=== PATIENT | male | born 1970 | race Caucasian/White ===

== ENCOUNTER 2016-03-08 11:44 | Emergency (ER) | payer SELFPAY ==
[2016-03-08 11:44] VITALS: BMI 25.2
[2016-03-08 12:11] VITALS: BP 127/82; PULSE 90; TEMP 97.5
--- NOTE | 2016-03-08 12:27 | EDPRACDOC ---
- General Information Chief Complaint: Knee Pain Stated Complaint: KNEE PAIN Time Seen by Provider: 03/08/16 12:22 Information Source: Patient Mode of Arrival: Car Home Medications: Home Medications Ibuprofen Tablet [Advil] 800 mg PO Q8H PRN 07/26/12 Esomeprazole Magnesium [Nexium 24Hr] 22.3 mg PO DAILY 01/29/15 Lamotrigine 200 mg PO BID 01/29/15 Sertraline HCl 100 mg PO DAILY #10 tablet 01/30/15 Trazodone HCl 100 mg PO QHS #10 tab 01/30/15 Meloxicam [Mobic] 7.5 mg PO DAILY #30 tab 03/29/15 Ketoprofen 50 mg PO BID PRN #20 capsule 03/08/16 Allergies/Adverse Reactions: Allergies Allergy/AdvReac Type Severity Reaction Status Date / Time No Known Allergies Allergy Verified 03/29/15 18:23 - History of Present Illness Onset: yesterday HPI: PT STATES HE FELL AND TWISTED HIS LEFT KNEE YESTERDAY, STATES KNEE IS MILDLY PAINFUL AND SWOLLEN, PT STATES HE HAS A "PLATE" IN HIS KNEE FROM PREVIOUS FRACTURE. PT IS ABLE TO AMBULATE WITHOUT DIFFICULTY Knee Problem Location: Left Mechanism: Reports: Twisting Circumstances: Reports: Fall Relevant History: Reports: Knee Operation Able to Bear Weight: Fully Pain Severity: Reports: Mild Associated Signs & Symptoms: Reports: Swelling. 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 Denies: Substance Use Disorder Systemic History: Denies: Cancer Surgical History: Reports: Other (Left knee, Left wrist, right foot) - Family Medical History Reports: Hypertension (MOTHER). Denies: Diabetes, Cancer, Stroke, Cardiac Disorders - Social Medical History Smoking Status: Heavy tobacco smoker (5 or more cigarettes/day or daily pipe/ cigar) Social History: Denies: Substance Use Disorder EDM Review of Systems - Review of Systems Neurological: negative: Dizziness, Numbness, Weakness Musculoskeletal: Knee Integumentary: No Symptoms Reported - Physical Exam Constitutional: Alert (Awake), No apparent distress Oriented to: Time, Person, Place Last recorded Vital Signs: Last Vital Signs Temp 97.5 F 03/08/16 12:10 Pulse 90 03/08/16 12:10 Resp 18 03/08/16 12:10 BP 127/82 03/08/16 12:10 Pulse Ox 99 03/08/16 12:10 Oxygen Pulse Oxygen Saturation 99 O2 Device Room Air Oxygen Flow Rate Fraction of Inspired Oxygen ( FIO2) - HEENT Head: Normal ( normocephalic) - Integumentary Skin: Normal, Warm, Dry Lymphatics: Normal (no adenopathy) - Neurologic Memory Impaired: Normal Motor Function: Normal (Normal tone, Pulses 2+ No cyanosis or edema, FROM) Cranial Nerve: Normal (CN II-X11 intact sensation, strength 5/5) Cerebellar: Normal Mood Description: Normal Perception: Normal ED Knee Problem Phys Exam - Musculoskeletal Knee: Swelling, Mild Tenderness. negative: Deformity, Joint Effusion, Limited ROM Knee Ligaments: Normal Knee Meniscus: Normal Thigh: Normal Lower Leg: Normal Distal Function/Circulation: Normal - Integumentary Skin: Normal - Differential Diagnosis Contusion, Meniscus Injury, Sprain - Diagnostic Imaging LEFT KNEE Image interpreted by: Radiologist LEFT KNEE - COMPLETE 4+ VIEW COMPARISON: 03/29/2015. FINDINGS: Plate and screw fixation of the proximal left tibia noted. No acute bony abnormality identified. Prominent knee joint effusion. IMPRESSION: 1. ORIF proximal tibia with good anatomic alignment. Hardware intact. 2. Prominent knee joint effusion. Decision Time to Discharge: 12:56 - Departure Disposition: Home Condition: Stable Final Diagnosis: Left knee sprain Qualifiers: Encounter type: initial encounter Involved ligament of knee: unspecified ligament Qualified Code(s): S83.92XA - Sprain of unspecified site of left knee, initial encounter Instructions: RICE: Routine Care for Injuries, Knee Sprain (ED) Education/Counseling Given To: Patient Education/Counseling Given Regarding: Diagnosis, Treatment, Prognosis, Follow Up Referrals: Mac Ayala MD [Staff Physician] - One Week Prescriptions: Ketoprofen 50 mg PO BID PRN #20 capsule PRN Reason: Pain Forms: Excuse Note Additional Instructions: Fracture/Sprain: Elevate affected area as much as possible, apply cold compresses 20 mins at a time as needed for pain or swelling, wear splint until you follow up with orthopedics.
--- NOTE | 2016-03-08 12:54 | DIRPT ---
CLINICAL DATA: Fall. Pain and swelling. EXAM: LEFT KNEE - COMPLETE 4+ VIEW COMPARISON: 03/29/2015. FINDINGS: Plate and screw fixation of the proximal left tibia noted. No acute bony abnormality identified. Prominent knee joint effusion. IMPRESSION: 1. ORIF proximal tibia with good anatomic alignment. Hardware intact. 2. Prominent knee joint effusion. Electronically Signed By: Waldemar Flores On: 03/08/2016 12:51
== END 2016-03-08 13:12 | disposition home or self-care (01) ==
LOC: EDMC 11:44
DX: S83.92XA Sprain of unspecified site of left knee, initial encounter (principal); W19.XXXA Unspecified fall, initial encounter
CPT/HCPCS: 99282

== ENCOUNTER 2016-03-23 15:41 | Emergency (ER) | payer SELFPAY ==
[2016-03-23 16:06] VITALS: BP 131/78; PULSE 84; TEMP 98.7; BMI 25.8
[2016-03-23 16:33] LABS: LEUKOCYTES/URINE NEG (NEGATIVE); NITRITE/URINE NEG (NEGATIVE); RBC/URINE 0-2 (0-2); URINE OCCULT BLOOD NEG (NEG/TRACE); WBC/URINE 0-2 (0-2)
--- NOTE | 2016-03-23 17:00 | EDPRACDOC ---
- General Information Chief Complaint: Male Urogenital Problems Stated Complaint: ENLARGED PROSTATE? Time Seen by Provider: 03/23/16 16:50 Information Source: Patient Home Medications: Home Medications Ibuprofen Tablet [Advil] 800 mg PO Q8H PRN 07/26/12 Esomeprazole Magnesium [Nexium 24Hr] 22.3 mg PO DAILY 01/29/15 Lamotrigine 200 mg PO BID 01/29/15 Sertraline HCl 100 mg PO DAILY #10 tablet 01/30/15 Trazodone HCl 100 mg PO QHS #10 tab 01/30/15 Meloxicam [Mobic] 7.5 mg PO DAILY #30 tab 03/29/15 Ketoprofen 50 mg PO BID PRN #20 capsule 03/08/16 Ciprofloxacin HCl [Cipro] 500 mg PO BID #20 tab 03/23/16 Tamsulosin HCl [Flomax] 0.4 mg PO DAILY #30 cap 03/23/16 Allergies/Adverse Reactions: Allergies Allergy/AdvReac Type Severity Reaction Status Date / Time No Known Allergies Allergy Verified 03/23/16 16:43 - History of Present Illness HPI: PT STATES OVER THE LAST 6 MONTHS HAS NOTICED THAT HE IS URINATING MORE FREQ AT NIGHT. HE STATES HE DRINKS SEVERAL SODAS IN THE AM AND FLAVORED WATER THROUGHOUT THE DAY. NO BURNING URGENCY WITH URINATING NO DECREASED CALIBER OF STREAM OR DRIBBLING AFTER URINATION. NO PELVIC OR GENITAL PAIN AT TIS TIME. Onset: 6 MONTHS Urinary Pain Location: Reports: None Symptom Onset: Reports: Spontaneous Pain Severity: None History of: Reports: None Oral Intake: Normal Urinary Output: Normal (INCREASED AT NIGHT) Associated Signs and Symptoms: Reports: None ED Past Medical History - History Reviewed Yes Nurses notes reviewed and agree except as marked Travel Outside of [place] in the Last 3 Months?: No - Patient Medical History GI/ History: Reports: Gastroesophageal Reflux Musculoskeletal History: Reports: Arthritis (RIGHT ANKLE) Psychological History: Reports: Anxiety. Denies: Depression, Substance Use Disorder Systemic History: Denies: Cancer Surgical History: Reports: Other (Left knee, Left wrist, right foot) - Family Medical History Reports: Hypertension (MOTHER). Denies: Diabetes, Cancer, Stroke, Cardiac Disorders - Social Medical History Smoking Status: Heavy tobacco smoker (5 or more cigarettes/day or daily pipe/ cigar) Social History: Denies: Substance Use Disorder ETOH: None Substance Abuse: None Lives With: Other Lives In: Home EDM Review of Systems - Review of Systems ROS Negative Except as Marked: Yes All systems reviewed and were negative except as marked Constitutional: No Symptoms Reported. negative: Fever, Chills, Weakness, Fatigue, Loss of Appetite Eyes: No Symptoms Reported. negative: Redness, Blurred Vision, Double Vision, Discharge, Pain, Light Sensitive, Photophobia Ears: No Symptoms Reported. negative: Pain, Hearing Loss, Drainage, Ear Pulling Throat: No Symptoms Reported. negative: Pain, Swelling Nose: No Symptoms Reported. negative: Congestion, Bleeding, Discharge, Injection, Swelling, Deformity, Ecchymosis, Tender, Abrasion, Laceration Mouth: No Symptoms Reported. negative: Pain, Drooling Respiratory: No Symptoms Reported. negative: Cough, Brassy Cough, Barky Cough, Shortness of Breath, Wheezing, Hemoptysis Cardiovascular: No Symptoms Reported. negative: Chest Pain, Palpitations, Syncope, Edema, Orthopnea, PND, Skin Mottling, Cyanosis Gastrointestinal: No Symptoms Reported. negative: Pain, Constipation, Nausea, Vomiting, Diarrhea, Melena, Formula Intolerance Genitourinary: Other (URINARY FREQ AT NIGHT.). negative: Bleeding, Dysuria, Discharge, Frequency, Hematuria, , Testicular Pain Neurological: No Symptoms Reported. negative: Headache, Dizziness, Seizure, Numbness, Weakness, Speech Difficulty, Gait Difficulty Musculoskeletal: No Symptoms Reported. negative: Neck, Chestwall, Ribs, Back, Shoulder, Arm, Elbow, Forearm, Wrist, Hand, Pelvis, Hip, Femur, Knee, Leg, Ankle , Foot Integumentary: No Symptoms Reported. negative: Itching, Rash, Bruising, Wound Allergic/Immunologic: No Symptoms Reported. negative: Hives, Itching Hematologic: No Symptoms Reported. negative: Lymphadenopathy, Easy Bruising, Easy Bleeding Endocrine: No Symptoms Reported. negative: Weight Gain, Weight Loss Psychiatric: No Symptoms Reported. negative: Anxiety, Depression, Hallucinations, Insomnia, Suicidal - Physical Exam Constitutional: No apparent distress, Alert (Awake) Oriented to: Time, Person, Place Last recorded Vital Signs: Last Vital Signs Temp 98.7 F 03/23/16 16:02 Pulse 84 03/23/16 16:02 Resp 20 03/23/16 16:02 BP 131/78 03/23/16 16:02 Pulse Ox 96 03/23/16 16:02 Oxygen Pulse Oxygen Saturation 96 O2 Device Room Air Oxygen Flow Rate Fraction of Inspired Oxygen ( FIO2) - HEENT Head: Normal ( normocephalic) Eye Exam: Normal (PERRL, EOMI, Sclera white) Oropharynx: Normal (Pharynx:Moist without exudate,Gums-no swelling) Tympanic Membrane: Normal ENT EAC: Normal TMJ: Normal Nose: No Symptoms Reported (septum midline) Neck: Normal (FROM, trachea at midline) - Respiratory/Cardiovascular Respiratory: Normal - CTA (BBS clear to auscultation without adventitious sounds ) Cardiovascular: Normal (RRR without murmur, gallop or rub) - GI Auscultation: Normal (NABS) Palpation: Normal (Soft,No rebound or guarding, non distended) Tenderness: Non tender Ontiveros's Sign: Negative - Bladder: Normal - Musculoskeletal Back: Normal (Non-Tender) Extremities: Normal (Normal tone, Pulses 2+ No cyanosis or edema, FROM) - Integumentary Skin: Normal, Warm, Dry Lymphatics: Normal (no adenopathy) - Neurologic Memory Impaired: Normal Motor Function: Normal (Normal tone, Pulses 2+ No cyanosis or edema, FROM) Cranial Nerve: Normal (CN II-X11 intact sensation, strength 5/5) Cerebellar: Normal Mood Description: Normal Perception: Normal - Differential Diagnosis Other (BPH, DMT), Prostatitis, Urethritis, UTI - Results Urine Color Yellow 03/23/16 16:07 Urine Clarity Clear 03/23/16 16:07 Urine pH 5.0 (5.0-8.0) 03/23/16 16:07 Ur Specific [place] >/=1.035 (1.003-1.035) 03/23/16 16:07 Urine Protein Neg (NEG/TRACE) 03/23/16 16:07 Urine Glucose (UA) Neg (NEGATIVE) 03/23/16 16:07 Urine Ketones Neg (NEGATIVE) 03/23/16 16:07 Urine Occult Blood Neg (NEG/TRACE) 03/23/16 16:07 Urine Nitrite Neg (NEGATIVE) 03/23/16 16:07 Urine Bilirubin Neg (NEGATIVE) 03/23/16 16:07 Urine Urobilinogen <2.0 MG/DL (0-1) 03/23/16 16:07 Ur Leukocyte Esterase Neg (NEGATIVE) 03/23/16 16:07 Urine RBC 0-2 (0-2) 03/23/16 16:07 Urine WBC 0-2 (0-2) 03/23/16 16:07 Ur Epithelial Cells Occ 03/23/16 16:07 Hyaline Casts 10-20 (0-2) H 03/23/16 16:07 Urine Mucus Mod (NEG/OCC) H 03/23/16 16:07 Lab Results 03/23/16 16:07 Urine Color Yellow Urine Clarity Clear Urine pH 5.0 Ur Specific [place] >/=1.035 Urine Protein Neg Urine Glucose (UA) Neg Urine Ketones Neg Urine Occult Blood Neg Urine Nitrite Neg Urine Bilirubin Neg Urine Urobilinogen <2.0 Ur Leukocyte Esterase Neg Urine RBC 0-2 Urine WBC 0-2 Ur Epithelial Cells Occ Hyaline Casts 10-20 H Urine Mucus Mod H - Additional Information CBG 90 Decision Time to Discharge: 17:11 - Departure Disposition: Home Condition: Stable Final Diagnosis: Urinary frequency Prostatitis Qualifiers: Prostatitis type: acute Qualified Code(s): N41.0 - Acute prostatitis Instructions: Prostatitis (ED) Education/Counseling Given To: Patient Education/Counseling Given Regarding: Diagnosis, Treatment, Prognosis, Follow Up Referrals: Davey Rizo MD [Primary Care Provider] - One Week Kapil Espino MD [Staff Physician] - One Week Prescriptions: Ciprofloxacin HCl [Cipro] 500 mg PO BID #20 tab Tamsulosin HCl [Flomax] 0.4 mg PO DAILY #30 cap
== END 2016-03-23 17:19 | disposition home or self-care (01) ==
LOC: ED 15:41 → EDMC 17:19
DX: R35.0 Frequency of micturition (principal); N41.0 Acute prostatitis; K21.9 Gastro-esophageal reflux disease without esophagitis; F41.9 Anxiety disorder, unspecified; F17.200 Nicotine dependence, unspecified, uncomplicated; Z79.899 Other long term (current) drug therapy
CPT/HCPCS: 81001; 82962; 99283